=== PATIENT | male | born 1980 | race Caucasian/White ===

== ENCOUNTER 2021-07-04 08:56 | Outpatient (CLI) | payer OTHER, SELFPAY ==
--- NOTE | ~2021-07-04 | XR_ITS ---
XR hand LT min 3V DATE: 07/04/2021 13:42 INDICATION: Bilateral hand pain. No injury. TECHNIQUE: 3 views of left hand. Lateral view of fifth digit. 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 No fracture or dislocation, periosteal reaction or bone destruction is detected. No erosive change or chondrocalcinosis. There is narrowing of some the distal interphalangeal joints consistent with mild osteoarthritis. 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
--- NOTE | ~2021-07-04 | XR_ITS ---
XR hand RT min 3V DATE: 07/04/2021 13:43 INDICATION: Bilateral hand pain. No injury. TECHNIQUE: 3 views of right hand. Lateral view of right fifth digit COMPARISON: None FINDINGS: There is diffuse osteopenia. There is degenerative change at the distal interphalangeal joints primarily. No fracture, dislocation, periosteal reaction or bone destruction. No erosive change or chondrocalcin osis. IMPRESSION: Degenerative change primarily at the distal interphalangeal joints Reviewed, dictated and finalized at location B.
== END 2021-07-04 08:57 | disposition home or self-care (01) ==
PROVIDERS: PCP Family Medicine; Visit Provider Family Medicine
DX: M19.042 Primary osteoarthritis, left hand (principal); M19.041 Primary osteoarthritis, right hand
CPT/HCPCS: 73130

== ENCOUNTER → 2022-12-04 14:52 | Outpatient (CLI) | payer OTHER, SELFPAY ==
--- NOTE | ~2022-12-04 | DEXA_ITS ---
Bone Density Report Name: CARISA LEOS Age: 42 Sex: Male Ethnicity: White Date of : 1980 Indication: osteopenia Referring Provider: Nina Roland Study: Bone densitometry was performed. Exam Date: December 04, 2022 Accession number: [id number] Bone Density: Region BMD T-score Z-score Classification AP Spine (L1-L4) 0.863 -2.1 -2.0 Osteopenia Femoral Neck (Left) 0.800 -1.0 -0.5 Normal Total Hip (Left) 0.971 -0.4 -0.2 Normal Femoral Neck (Right) 0.732 -1.5 -1.0 Osteopenia Total Hip (Right) 0.809 -1.5 -1.3 Osteopenia Total Hip Mean 0.890 -1.0 -0.8 Normal World Health Organization criteria for BMD impression classify patients as: Normal (T-score at or above -1.0), Osteopenia (T-score between -1.0 and -2.5), or Osteoporosis (T-score at or below -2.5). 10-year Fracture Risk: FRAX not reported because: Man under age 50 Clinical Information Provided by Patient: Has used the following medications: Vitamin D, Calcium Patient maximum height was 75 Drinks caffeinated beverages Impression: The patient's bone mass is below expected range for age, gender and ethnicity based on the Total Spine Z-score. Discussion: BONE DENSITY IS ABNORMALLY LOW FOR AGE, SEX, AND RACE. This patient's lowest Z-score is -2.0 or more below average for age, sex, and race at one or more sites. This may be due to low peak bone mass or to excessive bone loss. There may be some underlying disease or condition contributing to reduced bone mass. Further evaluation should be considered. There are no data relating bone density and fracture risk in younger men. The ISCD position is that the diagnosis of ?low bone mass? or ?osteoporosis? should not be made on densitometric criteria alone. WHO criteria only apply to men age > 50. The 10-year fracture risk calculated by FRAX is less than the threshold recommended by the National Osteoporosis Foundation (NOF) for treatment for men age > 50, and no threshold has been established for younger men. All treatment decisions require clinical judgment and consideration of individual patient factors, including patient preferences, comorbidities, previous drug use, risk factors not captured in the FRAX model (e.g., frailty, falls, vitamin D deficiency, increased bone turnover, interval significant decline in bone density) and possible under or overestimation of fracture risk by FRAX. Although pharmacologic therapy is sometimes indicated for patients with Z-scores in this range, there is little information available. A decision to treat should be based on a thorough consideration of benefits and risks. The patient should follow a healthful lifestyle (good nutrition with adequate calcium and vitamin D, and appropriate weight-bearing exercise). Follow-Up: Consider repeating this study in 2 to 3 years to reassess
== END ==
PROVIDERS: PCP Family Medicine; Visit Provider Family Medicine
DX: M85.88 Other specified disorders of bone density and structure, other site (principal); M85.851 Other specified disorders of bone density and structure, right thigh
CPT/HCPCS: 77080

== ENCOUNTER 2024-09-10 08:19 | Emergency (ER) | payer OTHER, SELFPAY ==
[2024-09-10 08:27] VITALS: BP 152/92; PULSE 96; RESP 19; TEMP 36.1; O2SAT 99
--- NOTE | 2024-09-10 08:36 | ED.URI ---
HPI - URI/Sore Throat General Chief Complaint: Upper Respiratory Infection Stated Complaint: Covid Symptoms Source: patient and RN notes reviewed Mode of arrival: ambulatory Limitations: no limitations History of Present Illness HPI Narrative: 44 y/o male presented for c/o cough, chest congestion, runny nose, and body aches. Endorses occasional wheezing and states he lost taste/smell. 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 Denies sob, n/v/d/f/c. MD elicited complaint: cough Related Data Home Medications Medication Instructions Recorded Confirmed calcium carbonate (Antacid 200 mg PO BID 12/29/21 09/10/24 (calcium carbonate)) cholecalciferol (vitamin D3) 50 50 mcg PO BID 12/29/21 09/10/24 mcg (2,000 unit) chewable tablet celecoxib 200 mg capsule 200 mg PO DIRECTED 03/21/24 09/10/24 diclofenac sodium 75 mg mg PO 09/10/24 09/10/24 tablet,delayed release Allergies Allergy/AdvReac Type Severity Reaction Status Date / Time No Known Allergies Allergy Verified 09/10/24 08:23 Review of Systems Review of Systems: CONSTITUTIONAL: Endorses malaise, denies chills, sweats, fever EYES: Denies visual changes, redness, or discharge ENT: Reports rhinorrhea, congestion, denies sinus pain, otalgia, sore throat CARDIOVASCULAR: Denies chest pain, palpitations, edema RESPIRATORY: Reports cough, post nasal drainage. Denies dyspnea GASTROINTESTINAL: Denies abdominal pain, nausea, vomiting, diarrhea MUSCULOSKELETAL: Endorses myalgia NEUROLOGIC: Denies headache PMFSH Family History Family History Grandparent Diabetes mellitus Hypertension Family history of elevated blood lipids Cerebrovascular accident Family history of coronary artery disease Family history of malignant neoplasm of breast Father Family history of elevated blood lipids Social History Social History Smoking status: Never smoker Alcohol intake: current Substance use: never Substance use type: does not use Lack of Transportation: No Lack of Food: Never True Current Housing: I Have Housing Concerned About Future Housing: No Difficulty Paying Gas/Electric Bills: No Difficulty Paying for Meds: No Currently Unemployed: No Education: Master's Degree or Higher Difficulty w/ Childcare or Family Care: No Living arrangements: with family Occupation/Education: occupation Gender identity (if verbalized by the patient): Male Sexual Orientation (if Verbalized by the Patient): Straight or Heterosexual Agree to blood products: Yes Exam Narrative: GENERAL: mildly Ill-appearing, nontoxic no acute distress. EYES: PERRLA, conjunctivae clear ENT: Mucous membranes moist. TMs slighlty erythematous with dull light reflex bilaterally; denies pain, no tragal tenderness. Oropharynx not erythematous without lesions or exudate, no drooling, no hoarseness, no trismus, uvula midline. No tripod positioning, muffled voice, soft palate or pharyngeal wall bulging NECK: Supple. No lymphadenopathy CHEST: Faint Scattered expiratory wheezing. No respiratory distress, speaks in full sentences. HEART: Regular rate and rhythm. No murmur heard. SKIN: Warm, dry NEURO: Alert and oriented x3. PSYCH: Normal mood and affect Course Course Emergency Course: Patient is aware of diagnosis, understands and agrees to treatment plan. Anticipatory guidance given. Patient agrees to follow-up as directed and is aware of reasons to seek care at the emergency department. Portions of this record may have been created with voice recognition software Level of Care: Express Care Visit Vital Signs Vital signs: reviewed MDM - URI/Sore Throat MDM Narrative Medical decision making narrative: POS influenza Discussed physical exam findings. Advised supportive measures and signs/symptoms to go to the ER. Pt is appropriate for outpt treatment and f/u. Differential Diagnosis Differential diagnosis: Likely upper respiratory infection, otitis media, sinusitis, viral infection and influenza Discharge Plan Discharge Clinical Impression: Influenza A Patient Disposition: Home, Self-Care Condition: Stable Instructions: Influenza (ED) Additional Instructions: Influenza positive You should avoid crowds until you are fever free for 24 hours without the use of fever reducing medications, or the symptoms are improved Rest. Drink plenty of fluids. Tylenol 1000mg every 8 hours as needed for pain/fever Flonase spray and Zyrtec (or Claritin/Rita) for sinus pressure/congestion over the counter Cough syrup may cause drowsiness; avoid driving or take it at night time. Follow up with your primary care provider as needed Go to the ER for worsening symptoms or concerns Prescriptions: New prednisone 50 mg tablet 50 mg PO DAILY Qty: 5 0RF No Action diclofenac sodium 75 mg tablet,delayed release (DR/EC) PO cholecalciferol (vitamin D3) 50 mcg (2,000 unit) tablet,chewable 50 mcg PO BID calcium carbonate [Antacid (calcium carbonate)] 200 mg calcium (500 mg) tablet,chewable 200 mg PO BID simvastatin 10 mg tablet 10 mg PO DAILY Qty: 90 1RF celecoxib 200 mg capsule 200 mg PO DIRECTED alprazolam 0.25 mg tablet 0.25 mg PO BID PRN (Reason: anxiety) Qty: 30 0RF Follow-up/Referrals: Nina Roland DO [Primary Care Provider] -
[2024-09-10 08:53] LABS: EDCOVIDSCREEN Negative (Negative); EDINFLUASCREEN Positive (Negative); EDINFLUBSCREEN Negative (Negative)
== END 2024-09-10 08:38 | disposition home or self-care (01) ==
PROVIDERS: Emergency Provider Nurse Practitioner Family; PCP Family Medicine
DX: J10.1 Influenza due to other identified influenza virus with other respiratory manifestations (principal); Z20.822 Contact with and (suspected) exposure to COVID-19
CPT/HCPCS: 87426; 87804; 99213; G0463

== ENCOUNTER 2025-03-20 14:59 | Outpatient (CLI) | payer OTHER, SELFPAY ==
--- NOTE | ~2025-03-20 | DEXA_ITS ---
Bone Density Report Name: CARISA LEOS Age: 44 Sex: Male Ethnicity: White Date of : 1980 Indication: osteopenia; Referring Provider: Nina Roland Study: Bone densitometry was performed. Exam Date: March 20, 2025 Accession number: [id number] Bone Density: Region BMD T-score Z-score Classification AP Spine(L1-L4) 0.884 -1.9 -1.7 Osteopenia Femoral Neck (Left) 0.734 -1.4 -0.9 Osteopenia Total Hip (Left) 0.919 -0.8 -0.5 Normal Femoral Neck (Right) 0.681 -1.8 -1.3 Osteopenia Total Hip (Right) 0.811 -1.5 -1.2 Osteopenia Total Hip Mean 0.865 -1.2 -0.9 Osteopenia World Health Organization criteria for BMD impression classify patients as: Normal (T-score at or above -1.0), Osteopenia (T-score between -1.0 and -2.5), or Osteoporosis (T-score at or below -2.5). 10-year Fracture Risk: FRAX not reported because: Man under age 50 Previous Exams: -- Region Exam Age BMD T-score BMD Change BMD Change Date g/cm2 vs Baseline vs Previous -- AP Spine (L1-L4) 03/20/2025 44 0.884 -1.9 2.4% 2.4% 12/04/2022 42 0.863 -2.1 Total Hip(Left) 03/20/2025 44 0.919 -0.8 -5.4%* -5.4%* 12/04/2022 42 0.971 -0.4 Total Hip(Right) 03/20/2025 44 0.811 -1.5 0.3% 0.3% 12/04/2022 42 0.809 -1.5 -- *Denotes significance at 95% confidence level, LSC for AP Spine = 0.022 g/cm2, LSC for Total Hip = 0.027 g/cm2 Clinical Information Provided by Patient: Has used the following medications: Vitamin D, Calcium Patient maximum height was 75 Drinks caffeinated beverages Impression: The patient's bone mass is within expected range for age, gender and ethnicity. The BMD for the Total Hip(Left) decreased, changing by -5.4% since the last DXA exam. Discussion: BONE DENSITY IS WITHIN EXPECTED LIMITS FOR AGE, SEX AND RACE. Bone density is within expected limits for age, sex and race at all sites measured. The patient should follow a healthful lifestyle (good nutrition with adequate calcium and vitamin D, and appropriate weight-bearing exercise). Follow-Up: Consider repeating this study in 2 years to reassess this patient's status, or sooner if there is some new clinical indication. Reported by: JONY on 03/20/2025 3:18:00 PM. Reviewed, dictated and finalized at location A.
== END 2025-03-20 15:00 | disposition home or self-care (01) ==
LOC: MICIMG 15:00
PROVIDERS: PCP Family Medicine; Visit Provider Family Medicine
DX: M85.88 Other specified disorders of bone density and structure, other site (principal); M85.852 Other specified disorders of bone density and structure, left thigh; M85.851 Other specified disorders of bone density and structure, right thigh
CPT/HCPCS: 77080